=== PATIENT | male | born 1990 | race Caucasian/White ===

== ENCOUNTER 2022-11-17 07:27 | Emergency (ER) | payer SELFPAY ==
[2022-11-17 08:02] VITALS: BP 128/78; PULSE 75; RESP 20; TEMP 98.9; BMI 171.0
[2022-11-17] MEDS ORDERED: morphine CARPU-JECT 2 MG/1 ML DISP.SYRIN IM ONE (08:49)
[2022-11-17] MEDS ORDERED: morphine SULFATE 4 MG/ML VIAL ONE (08:57)
== END 2022-11-17 09:50 | disposition home or self-care (01) ==
LOC: JER 07:27 → JERFT 07:27
PROC: 0H98XZX Drainage of Buttock Skin, External Approach, Diagnostic (ICD-10-PCS; principal; 2022-11-17)
PROC: 3E023GC Introduction of Other Therapeutic Substance into Muscle, Percutaneous Approach (ICD-10-PCS; 2022-11-17)
DX: K61.1 Rectal abscess (principal)
CPT/HCPCS: 76857; 99284-25

== ENCOUNTER 2022-11-19 05:43 | Emergency (ER) | payer SELFPAY ==
[2022-11-19 05:50] VITALS: BP 117/74; PULSE 96; RESP 18; TEMP 98.6; BMI 31.4
== END 2022-11-19 08:09 | disposition home or self-care (01) ==
LOC: JERFT 05:43 → JER 05:43 → JERFT 08:09
DX: K61.1 Rectal abscess (principal); Z48.01 Encounter for change or removal of surgical wound dressing
CPT/HCPCS: 99281-25

== ENCOUNTER 2022-11-21 05:37 | Emergency (ER) | payer OTHER ==
[2022-11-21 06:18] VITALS: BP 108/56; PULSE 69; RESP 18; TEMP 98.5; BMI 31.4
== END 2022-11-21 07:43 | disposition home or self-care (01) ==
LOC: JER 05:37
DX: Z48.00 Encounter for change or removal of nonsurgical wound dressing (principal)
CPT/HCPCS: 99281-25